=== PATIENT | male | born 1960 | race Caucasian/White ===

== ENCOUNTER 2017-09-21 10:41 | Emergency (ER) | payer MEDICARE ==
[2016-08-25 08:50] VITALS: Wt 68.0 kg
[~2017-09-21 10:41] MED LIST: ACET-1966 PO; AMO500 PO; ASC500 PO; ASPI325T22 PO; AUG875 PO; CHOL10005 PO; CIP500 PO; CIPR-345 PO; CYC10 PO; CYCL10TA29 PO; DAR100 PO; DICL-192 PO; DOC100 PO; FISH OIL 1,2001 CAP PO; FISH OIL1 CAP PO; HYDR-3083 PO; HYDR-3097 PO; HYDR-389 PO; HYDR-4309 PO; HYDR-6016 PO; IBU800 PO; IBUP-1671 PO; IBUP600T22 PO; KET10 PO; LAM25 PO; LAMO100T56 PO; LAMO200T46 PO; LEV500 PO; LEVO50TA80 PO; LEVO50TA86 PO; LEVO88TA45 PO; LOR5 PO; LOR5/325 PO; LORA-630 PO; METR-1 PO; MIRT-20 PO; MOM PO; MULT-1379 PO; MULT-820 PO; MULT-865 PO; NABU-95 PO; NICO-219 BC; NIT4 SL; OLA5 PO; OLAN10TA21 PO; OLAN20TA17 PO; OLAN5TAB25 PO; OXYC-856 PO; OXYC-865 PO; PENI-22 PO; PER PO; PRA20 PO; PRE20 PO; PREG100C44 PO; PROM-110 PO; RISP-34 PO; RISP3TAB78 PO; RIV10 PO; ROS10 PO; ROSU20TA23 PO; ROSU40TA18 PO; SER50 PO; SERT-1 PO; THIA100T62 PO; VENL75CA58 PO; WARF5TAB23 PO; ZINC15TA4 PO
--- NOTE | 2017-09-21 11:03 | ER Report ---
History and Physical Time Seen By MD: 11:02 Hx. of Stated Complaint: [facility] HOME; [facility] CALLED PD ON THIS PATIEN; PATIENT WAS SPEEKING WITH PEEK AND STATED THAT HE WANTED TO JUMP OFF A BRIDGE; PATIENT STATED TO OFFICER THAT HE WANTED HIM TO SHOOT HIM; PATIENT STATES THAT HE IS A "SHIT" AND "CAN'T DO ANYTHING RIGHT" HPI/ROS CHIEF COMPLAINT: Suicidal ideation, depression HISTORY OF PRESENT ILLNESS: 57-year-old male patient presents to emergency room with complaint of suicidal ideation, depression. Patient states he's been feeling like this since he got out of alf and even a couple weeks before he got out of alf. Patient states he was just released on after spending 50 days in alf for not having a breathalyzer lock in his car. He states that he is had suicidal ideation and suicide attempts in the past. He states last time was proximally 4 years ago when he overdosed on medication. He is unable to recall what medications was. He states he just feels like he is "a piece of shit", patient also feels like he is worthless and just wants to . He states he is in time on the behavioral health unit as well as time at the [facility]. Patient is aware that he has been emergency detained has being held against his will. REVIEW OF SYSTEMS: Respiratory: No cough, no dyspnea. Cardiovascular: No chest pain, no palpitations. Gastrointestinal: No vomiting, no abdominal pain. Musculoskeletal: Patient complains of right hip pain. Allergies: Coded Allergies: No Known Drug Allergies (Unverified , 09/21/17) Home Meds Reported Medications Levothyroxine Sodium (LEVOTHYROXINE SODIUM) 88 Mcg Tablet, 88 MCG PO QAM 01/12/17 Cholecalciferol (Vitamin D3) (VITAMIN D3) 1,000 Unit Tablet, 2000 UNIT PO QDAY, TAB 01/12/17 Venlafaxine Hcl (EFFEXOR XR) 75 Mg Cap.er.24h, 75 MG PO QDAY 01/12/17 Nicotine Polacrilex (NICORETTE) 2 Mg Gum, 2 MG BC Q1-2H Y for NICOTINE REPLACEMENT, GUM 11/17/16 Ibuprofen (IBUPROFEN) 600 Mg Tablet, 1 TAB PO Q6H Y for PAIN, TAB 11/17/16 Aspirin (ECOTRIN) 325 Mg Tablet.dr, 325 MG PO QDAY 11/17/16 Multivits,Th W-Fe,Other Min (THERA-M) 1 Each Tablet, 1 EACH PO QDAY 08/26/16 Mirtazapine (REMERON) 30 Mg Tab.rapdis, 30 MG PO QHS 08/26/16 Past Medical/Surgical History Patient has a past medical history of TBI, irregular heartbeat, hyperlipidemia, hayfever, ventral hernia, arthritis, hip fracture, rib fracture, left femoral fracture, transient back pain, hypothyroidism, marijuana abuse, alcohol abuse, depression and suicidal ideation, suicide attempt 3. Patient has a surgical history of a splenectomy, perforated bowel, ventral hernia repair, right hip replacement, back surgery, knee surgery, ankle surgery , shoulder surgery, tonsillectomy. Patient has a family medical history of cancer, CAD, stroke. Reviewed Nurses Notes: Yes Hx Smoking: No Smoking Status: Never Smoker Exposure to Second Hand Smoke?: No Hx Substance Use Disorder: Yes (POT) Hx Alcohol Use: Yes Constitutional Vital Sign - Last 24 Hours 09/21/17 09/21/17 09/21/17 09/21/17 10:45 10:46 11:00 11:11 Temp 98.7 Pulse 112 107 Resp 19 B/P (MAP) 140/99 (113) 140/99 155/101 (119) Pulse Ox 94 92 O2 Delivery Room Air 09/21/17 09/21/17 11:30 11:41 Pulse 101 B/P (MAP) 139/101 (114) Pulse Ox 91 Physical Exam General Appearance: The patient is alert, has no immediate need for airway protection and no current signs of toxicity. ENT: Tympanic membranes are pearly-banks, auditory canals are patent, mucous membranes are moist. Respiratory: Chest is non tender, lungs are clear to auscultation. Cardiac: regular rate and rhythm Gastrointestinal: Abdomen is soft and non tender, no masses, bowel sounds normal. Musculoskeletal: Neck: Neck is supple and non tender. Extremities have full range of motion and are non tender. Patient does have some tenderness around the right hip, he is also wearing his wallet on that side. Skin: No rashes or lesions. Psych: Patient is alert and oriented, maintains poor eye contact during interview, speech is slow. DIFFERENTIAL DIAGNOSIS: After history and physical exam differential diagnosis was considered for suicidal ideation, depression, right hip pain. Medical Decision Making Data Points Result Diagram: 09/21/17 1056 09/21/17 1056 Laboratory Hematology Test 09/21/17 10:56 09/21/17 11:44 Red Blood Count 5.21 M/uL (4.00-5.60) Mean Corpuscular Volume 91.8 fL (80.0-96.0) Mean Corpuscular Hemoglobin 31.8 pg (26.0-33.0) Mean Corpuscular Hemoglobin Concent 34.7 g/dL (32.0-36.0) Red Cell Distribution Width 13.3 % (11.5-14.5) Mean Platelet Volume 9.0 fL (7.2-11.1) Neutrophils (%) (Auto) 74.7 % (39.4-72.5) Lymphocytes (%) (Auto) 12.3 % (17.6-49.6) Monocytes (%) (Auto) 11.6 % (4.1-12.4) Eosinophils (%) (Auto) 0.2 % (0.4-6.7) Basophils (%) (Auto) 1.2 % (0.3-1.4) Nucleated RBC Relative Count (auto) 0.0 /100WBC Neutrophils # (Auto) 7.3 K/uL (2.0-7.4) Lymphocytes # (Auto) 1.2 K/uL (1.3-3.6) Monocytes # (Auto) 1.1 K/uL (0.3-1.0) Eosinophils # (Auto) 0.0 K/uL (0.0-0.5) Basophils # (Auto) 0.1 K/uL (0.0-0.1) Nucleated RBC Absolute Count (auto) 0.00 K/uL Peripheral Blood Smear No Y/N Sodium Level 129 mmol/L (137-145) Potassium Level 4.5 mmol/L (3.5-5.0) Chloride Level 96 mmol/L (98-107) Carbon Dioxide Level 17 mmol/L (22-30) Blood Urea Nitrogen 10 mg/dl (9-21) Creatinine 1.00 mg/dl (0.66-1.25) Glomerular Filtration Rate Calc > 60.0 Random Glucose 104 mg/dl (75-110) Calcium Level 9.9 mg/dl (8.4-10.2) Magnesium Level 2.1 mg/dl (1.7-2.2) Total Bilirubin 0.8 mg/dl (0.2-1.3) Aspartate Amino Transf (AST/SGOT) 64 U/L (0-35) Alanine Aminotransferase (ALT/SGPT) 37 U/L (0-56) Alkaline Phosphatase 122 U/L (0-126) Total Protein 8.6 gm/dl (6.3-8.2) Albumin 4.9 g/dl (3.5-5.0) Salicylates Level < 10 mg/L Salicylate Last Dose Date unk Acetaminophen Level < 10 ug/ml Serum Alcohol < 10 mg/dl Urine Color Yellow Urine Clarity Clear Urine pH 5.0 pH (4.8-9.5) Urine Specific [place] 1.013 Urine Protein Negative mg/dL (NEGATIVE) Urine Glucose (UA) Negative mg/dL (NEGATIVE) Urine Ketones 80 mg/dL (NEGATIVE) Urine Blood Negative (NEGATIVE) Urine Nitrite Negative (NEGATIVE) Urine Bilirubin Negative (NEGATIVE) Urine Urobilinogen Negative mg/dL (0.2-1.9) Urine Leukocyte Esterase Negative (NEGATIVE) Urine RBC <1 /HPF (0-2/HPF) Urine WBC 4 /HPF (0-5/HPF) Urine Squamous Epithelial Cells None /LPF (</=FEW) Urine Bacteria Negative /HPF (NONE-FEW) Urine Hyaline Casts Few /LPF (NONE-FEW) Urine Mucus None /HPF (NONE-FEW) Urine Opiates Screen Negative Urine Barbiturates Screen Negative Ur Tricyclic Antidepressants Screen Negative Urine Phencyclidine Screen Negative Urine Amphetamines Screen Negative Urine Benzodiazepines Screen Negative Urine Cocaine Screen Negative Urine Cannabinoids Screen Negative Chemistry Test 09/21/17 10:56 09/21/17 11:44 White Blood Count 9.8 k/uL (4.5-11.0) Red Blood Count 5.21 M/uL (4.00-5.60) Hemoglobin 16.6 g/dL (14.0-18.0) Hematocrit 47.8 % (42.0-52.0) Mean Corpuscular Volume 91.8 fL (80.0-96.0) Mean Corpuscular Hemoglobin 31.8 pg (26.0-33.0) Mean Corpuscular Hemoglobin Concent 34.7 g/dL (32.0-36.0) Red Cell Distribution Width 13.3 % (11.5-14.5) Platelet Count 341 K/uL (150-450) Mean Platelet Volume 9.0 fL (7.2-11.1) Neutrophils (%) (Auto) 74.7 % (39.4-72.5) Lymphocytes (%) (Auto) 12.3 % (17.6-49.6) Monocytes (%) (Auto) 11.6 % (4.1-12.4) Eosinophils (%) (Auto) 0.2 % (0.4-6.7) Basophils (%) (Auto) 1.2 % (0.3-1.4) Nucleated RBC Relative Count (auto) 0.0 /100WBC Neutrophils # (Auto) 7.3 K/uL (2.0-7.4) Lymphocytes # (Auto) 1.2 K/uL (1.3-3.6) Monocytes # (Auto) 1.1 K/uL (0.3-1.0) Eosinophils # (Auto) 0.0 K/uL (0.0-0.5) Basophils # (Auto) 0.1 K/uL (0.0-0.1) Nucleated RBC Absolute Count (auto) 0.00 K/uL Peripheral Blood Smear No Y/N Glomerular Filtration Rate Calc > 60.0 Calcium Level 9.9 mg/dl (8.4-10.2) Magnesium Level 2.1 mg/dl (1.7-2.2) Total Bilirubin 0.8 mg/dl (0.2-1.3) Aspartate Amino Transf (AST/SGOT) 64 U/L (0-35) Alanine Aminotransferase (ALT/SGPT) 37 U/L (0-56) Alkaline Phosphatase 122 U/L (0-126) Total Protein 8.6 gm/dl (6.3-8.2) Albumin 4.9 g/dl (3.5-5.0) Salicylates Level < 10 mg/L Salicylate Last Dose Date unk Acetaminophen Level < 10 ug/ml Serum Alcohol < 10 mg/dl Urine Color Yellow Urine Clarity Clear Urine pH 5.0 pH (4.8-9.5) Urine Specific [place] 1.013 Urine Protein Negative mg/dL (NEGATIVE) Urine Glucose (UA) Negative mg/dL (NEGATIVE) Urine Ketones 80 mg/dL (NEGATIVE) Urine Blood Negative (NEGATIVE) Urine Nitrite Negative (NEGATIVE) Urine Bilirubin Negative (NEGATIVE) Urine Urobilinogen Negative mg/dL (0.2-1.9) Urine Leukocyte Esterase Negative (NEGATIVE) Urine RBC <1 /HPF (0-2/HPF) Urine WBC 4 /HPF (0-5/HPF) Urine Squamous Epithelial Cells None /LPF (</=FEW) Urine Bacteria Negative /HPF (NONE-FEW) Urine Hyaline Casts Few /LPF (NONE-FEW) Urine Mucus None /HPF (NONE-FEW) Urine Opiates Screen Negative Urine Barbiturates Screen Negative Ur Tricyclic Antidepressants Screen Negative Urine Phencyclidine Screen Negative Urine Amphetamines Screen Negative Urine Benzodiazepines Screen Negative Urine Cocaine Screen Negative Urine Cannabinoids Screen Negative Toxicology Test 09/21/17 10:56 09/21/17 11:44 Salicylates Level < 10 mg/L Salicylate Last Dose Date unk Acetaminophen Level < 10 ug/ml Serum Alcohol < 10 mg/dl Urine Opiates Screen Negative Urine Barbiturates Screen Negative Ur Tricyclic Antidepressants Screen Negative Urine Phencyclidine Screen Negative Urine Amphetamines Screen Negative Urine Benzodiazepines Screen Negative Urine Cocaine Screen Negative Urine Cannabinoids Screen Negative Urinalysis Test 09/21/17 11:44 Urine Color Yellow Urine Clarity Clear Urine pH 5.0 pH (4.8-9.5) Urine Specific [place] 1.013 Urine Protein Negative mg/dL (NEGATIVE) Urine Glucose (UA) Negative mg/dL (NEGATIVE) Urine Ketones 80 mg/dL (NEGATIVE) Urine Blood Negative (NEGATIVE) Urine Nitrite Negative (NEGATIVE) Urine Bilirubin Negative (NEGATIVE) Urine Urobilinogen Negative mg/dL (0.2-1.9) Urine Leukocyte Esterase Negative (NEGATIVE) Urine RBC <1 /HPF (0-2/HPF) Urine WBC 4 /HPF (0-5/HPF) Urine Squamous Epithelial Cells None /LPF (</=FEW) Urine Bacteria Negative /HPF (NONE-FEW) Urine Hyaline Casts Few /LPF (NONE-FEW) Urine Mucus None /HPF (NONE-FEW) EKG/Imaging Imaging Exam type: HIP RIGHT History: hip pain Comparison: January 06, 2014. Findings: There is a right hip arthroplasty that appears in good anatomic alignment. There is an old fracture deformity through the pubis and probable left iliac bone again seen. IMPRESSION: 1. No evidence of acute fracture-dislocation involving the right hip. Right hip arthroplasty appears in good anatomic alignment Report Dictated By: Samra Figueroa MD at 09/21/2017 11:58 AM Report E-Signed By: Samra Figueroa MD at 09/21/2017 11:59 AM ED Course/Re-evaluation ED Course Patient was admitted and examined, history and physical were obtained. Differential diagnoses were considered. On examination patient had some right hip tenderness, patient was obviously depressed. He had difficult time maintaining eye contact. He continued say things such as "I wish I was ", " I wish it was not here". Blood work for a behavioral health admission was done. The results were unremarkable except the patient did have 4 white blood cells per high-power field in his urine. A urine culture was obtained. X-rays done of the right hip which was negative. I discussed findings with patient. I spoke with Dr. Alcazar, psychiatrist, who agreed to accept the patient for admission. I discussed the findings with the patient and we will go ahead and admit him to behavioral health. Decision to Disposition Date: Sep 21, 2017 Decision to Disposition Time: 12:39 Depart Departure Latest Vital Signs Vital Signs Date Time Temp Pulse Resp B/P (MAP) Pulse Ox O2 Delivery O2 Flow Rate FiO2 09/21/17 11:41 101 91 09/21/17 11:30 139/101 (114) 09/21/17 10:46 98.7 19 Room Air Impression: Primary Impression: Depression with suicidal ideation Condition: Condition Unchanged Disposition: XFER TO [facility] LOI FREITAS Sep 21, 2017 11:03
[2017-09-21 11:30] VITALS: BP 139/101
[2017-09-21 11:30] LABS: PLATELET COUNT, AUTOMATED 341 K/uL (150-450)
--- NOTE | 2017-09-21 12:03 | RADIOLOGY IMAGING REPORT ---
[place]AC[place] [facility] [place]IENT NAME: Farooq Tai : 1960 MR: [id number] V: [id number] EXAM DATE: ORDERING PHYSICIAN: LOI FREITAS TECHNOLOGIST: Location: [facility] [place] Patient: Farooq Tai : 1960 Visit/Account:[id number] Date of Sevice: 09/21/2017 Exam type: HIP RIGHT History: hip pain Comparison: January 06, 2014. Findings: There is a right hip arthroplasty that appears in good anatomic alignment. There is an old fracture deformity through the pubis and probable left iliac bone again seen. IMPRESSION: 1. No evidence of acute fracture-dislocation involving the right hip. Right hip arthroplasty appear s in good anatomic alignment Report Dictated By: Samra Figueroa MD at 09/21/2017 11:58 AM Report E-Signed By: Samra Figueroa MD at 09/21/2017 11:59 AM WSN:[email or web address]
--- NOTE | 2017-09-21 12:48 | BHS - Psychiatric Evaluation ---
ER - Title 25 MHE Evaluation Title 25 Evaluation Patient Detained By: Law Enforcement Referral Source: [facility] Date Patient Detained: Sep 21, 2017 Time Patient Detained: 11:03 Date Jail Expires: Sep 24, 2017 Time Jail Expires: 11:03 Legal Status: Police Hold: Yes Legal Status: Residence: [facility] Resident, [facility] Resident Assessment Data Provided By: Patient, Law Enforcement HPI/ROS: Please review ER documentation Admit due to SI or Attempt: No Suicide Plan: Has Plan with Access Current Suicide Plan Jumping off of his balcony at his home. Patient also requested the police shoot him in route to the hospital. Alcohol or Drugs Involved: No Mental Status Exam General Appearance: Unkept, Tearful Speech: Delayed Mood: Dysthmic/Depressed Affect: Sad Thought Process: Logical Thought Content: Suicidal Ideation Sensorium: Clear Cognition: Alert & Oriented-Place, [id number]-[id number] Memory: Immediate, Recent, Remote Insight Judgment: Poor Sleep: Normal Hallucinations: Denies Delusions: Denies Current Risk & History Current Dangerous Risk Assessm: Current Suicide Ideation Past Dangerous Risk Assessm: Suicide Ideation-last 6mo, Self-Injurious Behaviors Prior Alcohol/Drug Abuse Alcohol and Marijuana abuse Previous Suicide Attempt: Past - High Lethality Number of Attempts/Description 3, last one was 4 years ago. Previous Psychiatric Illness: Yes Previous Psychiatric Treatment: Yes Previous Treatment Description [facility] Risk Assessment & Disposition Evaluated Risk Assessment: Patient has a focus of ideas on suicide and patient not wanting to be here. That coupled with his plan of jumping off a balcony and having access to that appointment patient will need to be detained and admitted to behavioral health unit. Impression: Primary Impression: Depression with suicidal ideation Meets Mental Illness Req.: Yes Meets Dangerousness Req.: Yes Emergency Jail to be: Upheld Date of Decision: Sep 21, 2017 Time of Decision: 11:35 Patient is Medically Stable at: Yes Disposition: LOI DIOP Sep 21, 2017 12:48
== END 2017-09-21 12:53 ==
LOC: ER 11:04
DX: F32.9 Major depressive disorder, single episode, unspecified (principal); R45.851 Suicidal ideations
CPT/HCPCS: 36415; 73502; 80305; 81001; 83735; 84443; 85025; 87088; 99285; G0480; 80320; 80329; 82040; 82247; 82310; 82374; 82435; 82565; 82947; 84075; 84132; 84155; 84295; 84450; 84460; 84520

== ENCOUNTER 2017-09-21 12:38 | Inpatient (IN) | payer MEDICARE ==
[2016-08-25 08:50] VITALS: Ht 170.2 cm; Wt 67.1 kg
[~2017-09-21] VITALS: Ht 170.2 cm; Wt 67.1 kg
[2017-09-21] MEDS ORDERED: MAG HYD/AL HYD/SIMETH 30ML UDC PO PRN (13:10)
[2017-09-21 13:25] VITALS: BP 128/93
[2017-09-21] MEDS ORDERED: DIAZEPAM 10 MG TAB PO ONE (14:00)
[2017-09-21] MEDS ORDERED: DIAZEPAM 10 MG TAB PO PRN (16:05)
[2017-09-21] MEDS: TAMSULOSIN HCL 0.4 MG CAP PO SCH (17:19)
[2017-09-21] MEDS ORDERED: VALPROIC ACID 250 MG CAP PO SCH (21:00)
[2017-09-22] MEDS: LEVOTHYROXINE SOD 0.088 MG TAB PO SCH (05:16)
[2017-09-22 05:30] VITALS: BP 132/80
[2017-09-22] MEDS: CHOLECALCIFEROL 1000 UNIT TAB PO SCH (08:21)
[2017-09-22] MEDS: NICOTINE POLACRILEX 2 MG GUM PO PRN ×2 (08:21→12:56)
[2017-09-22] MEDS: TAMSULOSIN HCL 0.4 MG CAP PO SCH (08:21)
[2017-09-22] MEDS: MULTIVITAMINS TAB PO SCH (08:21)
[2017-09-22] MEDS: LITHIUM CARBONATE 300 MG CAP PO SCH ×2 (11:38→21:37)
[2017-09-22 13:39] VITALS: BP 119/84
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
[2017-09-22] MEDS: MIRTAZAPINE 15 MG TAB PO SCH (21:38)
[2017-09-23] MEDS: LEVOTHYROXINE SOD 0.088 MG TAB PO SCH (05:28)
[2017-09-23 05:42] VITALS: BP 122/79
[2017-09-23] MEDS: CHOLECALCIFEROL 1000 UNIT TAB PO SCH (08:09)
[2017-09-23] MEDS: MULTIVITAMINS TAB PO SCH (08:09)
[2017-09-23] MEDS: LITHIUM CARBONATE 300 MG CAP PO SCH ×2 (08:09→20:46)
[2017-09-23] MEDS: TAMSULOSIN HCL 0.4 MG CAP PO SCH (08:09)
[2017-09-23] MEDS: NICOTINE POLACRILEX 2 MG GUM PO PRN (08:10)
--- NOTE | 2017-09-23 10:46 | BHS Progress Note ---
S - Subjective Progress Notes Subjective Patient remains very dysphoric this AM, little desire to get out of bed, stating "what is the point?" remains suicidal, is able to cooperate with staff encouraging patient to go for a walk with them. Will continue same medication today, and continue to encourage active engagement on the unit. Will need to look into suspended commitment status, on this patient with a high frequency of return of suicidal thoughts and attempts when not in a structured living arrangement. Suicidal Ideation: Ongoing Homicidal Ideation: None [facility] - Objective Physical Exam Vital Signs Vital Signs Date Time Temp Pulse Resp B/P (MAP) Pulse Ox O2 Delivery O2 Flow Rate FiO2 09/23/17 05:42 98.0 73 15 122/79 (93) 93 Room Air Hematology Test 09/21/17 10:56 Valproic Acid (Depakene) Level < 10.0 ug/ml Chemistry Test 09/21/17 10:56 Valproic Acid (Depakene) Level < 10.0 ug/ml Toxicology Test 09/21/17 10:56 Valproic Acid (Depakene) Level < 10.0 ug/ml Muscle Strength and Tone: Other (arthritic gait) Gait and Station: Unsteady [facility] Medications Reviewed: Side Effects, Benefits of Medication, Risks Allergies Reviewed: Yes Mental Status Exam General Appearance: No Good Eye Contact, Cooperative, Unkept, Psychomotor Retardation (significant), No Bizarre Mannerisms, No Tics Speech: Clear, No Normal Rate, No Normal Volume, Delayed, Other (poverty of, from baseline) Mood: Dysthmic/Depressed Affect: No Full and Appropriate, Flat, Withdrawn, No Anxious, No Agitated Thought Process: No Goal Directed, No Loose Associations, No Flight of Ideas Thought Content: Suicidal Ideation (ongoing, severe), No Homicidal Ideation, No Delusions, No Auditory Halllucinations, No Visual Hallucinations, No Thought Broadcasting, No Ideas of Reference, No Obsessions, No Compulsions Sensorium: Clear Cognition: Alert & Oriented-Person, Alert & Oriented-Place, Alert & Oriented- Time, Vuxdw-Ittynlxq-Ckzetfgmi Memory: Immediate, Recent, Remote Intelligence: Average Insight Judgment: Poor (extreme dysphoric state, historically complicated by alcohol and cannabis use. ) [facility] Assessment and Plan Galh-jf-Yeuf Encounter Date: Sep 23, 2017 Zggt-rm-Lyjo Encounter Time: 09:00 BHS Plan: Necessary Precautions, Individual/Group Therapy, Admin/Titrate Meds, Educate Patient Tobacco Medications: Started Multpiple Antipsychotics Used: No Problems: (1) Major depression, recurrent Optional Permanent Comment: rule out bipolar disorder type II Last Edited By: Jeni Gillis on Sep 23, 2017 10:44 Status: Chronic Condition 1. continue treatment. 2. no medication changes. 3. look into status of previous commitment, 4. schedule hearing. Problem Qualifiers (1) Major depression, recurrent: Active/Remission status: currently active Major depression episode severity: severe Psychotic features: without psychotic features Qualified Codes: F33.2 - Major depressive disorder, recurrent severe without psychotic features JENI GILLIS MD Sep 23, 2017 10:45
[2017-09-23 13:28] VITALS: BP 131/76
[2017-09-23] MEDS: MIRTAZAPINE 15 MG TAB PO SCH (20:46)
[2017-09-24] MEDS: LEVOTHYROXINE SOD 0.088 MG TAB PO SCH (06:00)
[2017-09-24] MEDS: LITHIUM CARBONATE 300 MG CAP PO SCH ×2 (08:05→21:15)
[2017-09-24] MEDS: TAMSULOSIN HCL 0.4 MG CAP PO SCH (08:05)
[2017-09-24] MEDS: CHOLECALCIFEROL 1000 UNIT TAB PO SCH (08:05)
[2017-09-24] MEDS: MULTIVITAMINS TAB PO SCH (08:05)
[2017-09-24 12:35] VITALS: BP 112/68
--- NOTE | 2017-09-24 14:11 | BHS Progress Note ---
[facility] - Subjective Progress Notes Subjective Pt seen in team meeting with staff present. Pt. states, "I ain't shit, just kill me." He continues to be withdrawn to his room, hopeless, self-denigrating , with profound passive wishes. He denies active SI, denies any plan or intent to harm himself here in the hospital. He refused to attend his 72 hour hearing today, so his jewel staker arranged a "behavioral stipulation" on his behalf. Appetite has been poor. Poor grooming. Low energy, helpless, significant anhedonia. Tolerating current meds well, denies n/v/d/tremor. Says "I don't know" when asked how he is sleeping. Suicidal Ideation: Ongoing (profound persistant passive wishes.) [facility] - Objective Physical Exam Vital Signs Vital Signs 09/24/17 12:35 Temp 98.9 Pulse 73 Resp 16 B/P (MAP) 112/68 (83) Pulse Ox 89 O2 Delivery Room Air Muscle Strength and Tone: Other (arthritic gait) Gait and Station: Unsteady [facility] Medications Reviewed: Side Effects, Benefits of Medication, Risks Allergies Reviewed: Yes Mental Status Exam General Appearance: No Good Eye Contact, Cooperative, Unkept, Psychomotor Retardation (significant), No Bizarre Mannerisms, No Tics Speech: Clear, No Normal Rate, No Normal Volume, Delayed, Other (poverty of, from baseline) Mood: Dysthmic/Depressed Affect: No Full and Appropriate, Sad, Flat, Withdrawn, No Anxious, No Agitated Thought Process: Organized, Logical, No Goal Directed, No Loose Associations, No Flight of Ideas Thought Content: Suicidal Ideation ( passive wishes are profound and persistant, high risk for suicide outside hospital setting), No Homicidal Ideation, No Delusions, No Auditory Halllucinations, No Visual Hallucinations, No Thought Broadcasting, No Ideas of Reference, No Obsessions, No Compulsions Sensorium: Clear Cognition: Alert & Oriented-Person, Alert & Oriented-Place, Alert & Oriented- Time, Wgjgz-Milprlko-Jeqpsacce Memory: Immediate, Recent, Remote Intelligence: Average Insight Judgment: Poor (extreme dysphoric state, historically complicated by alcohol and cannabis use. ) [facility] Assessment and Plan [id number] Encounter Date: Sep 24, 2017 Klwu-fk-Afiu Encounter Time: 10:00 [facility] Plan: Necessary Precautions, Individual/Group Therapy, Admin/Titrate Meds, Educate Patient Tobacco Medications: Started Multpiple Antipsychotics Used: No Problems: (1) Bipolar 2 disorder (2) Suicidal ideation (3) Alcohol use disorder, severe, in controlled environment Status: Chronic PAULINA MARQUEZ MD Sep 24, 2017 14:11
[2017-09-24] MEDS: MIRTAZAPINE 15 MG TAB PO SCH (21:15)
[2017-09-25] MEDS: LEVOTHYROXINE SOD 0.088 MG TAB PO SCH (05:54)
[2017-09-25] MEDS: CHOLECALCIFEROL 1000 UNIT TAB PO SCH (08:05)
[2017-09-25] MEDS: LITHIUM CARBONATE 300 MG CAP PO SCH ×2 (08:05→20:59)
[2017-09-25] MEDS: TAMSULOSIN HCL 0.4 MG CAP PO SCH (08:05)
[2017-09-25] MEDS: MULTIVITAMINS TAB PO SCH (08:06)
--- NOTE | 2017-09-25 12:19 | BHS Progress Note ---
S - Subjective Progress Notes Subjective Pt seen in team room with staff. Pt remains extremely depressed, hopeless, poor eye contact, psychomotor retardation, anergic, anhedonic, with profound passive wishes. "I'm a piece of shit, put a bullet in between my eyes." He denies any thoughts of killing himself here on the unit. He is tolerating meds without side effects, denies n/v/d/tremor. Sleeping excessively and stays withdrawn to his room; resists encouragement to participate in the [place]. Will continue current meds. Suicidal Ideation: Ongoing (profound wishes and says "I don't know" what he would do outside the hospital. High risk pt.) Homicidal Ideation: None [facility] - Objective Physical Exam Vital Signs Vital Signs 09/24/17 12:35 Temp 98.9 Pulse 73 Resp 16 B/P (MAP) 112/68 (83) Pulse Ox 89 O2 Delivery Room Air Muscle Strength and Tone: Other (arthritic gait) Gait and Station: Unsteady [facility] Medications Reviewed: Side Effects, Benefits of Medication, Risks Allergies Reviewed: Yes Mental Status Exam General Appearance: No Good Eye Contact, Cooperative, Unkept, Psychomotor Retardation (significant), No Bizarre Mannerisms, No Tics Speech: Clear, No Normal Rate, No Normal Volume, Delayed, Other (poverty of, from baseline) Mood: Dysthmic/Depressed Affect: No Full and Appropriate, Sad, Flat, Withdrawn, No Anxious, No Agitated Thought Process: Organized, Logical, No Goal Directed, No Loose Associations, No Flight of Ideas Thought Content: Suicidal Ideation ( passive wishes are profound and persistant, high risk for suicide outside hospital setting), No Homicidal Ideation, No Delusions, No Auditory Halllucinations, No Visual Hallucinations, No Thought Broadcasting, No Ideas of Reference, No Obsessions, No Compulsions Sensorium: Clear Cognition: Alert & Oriented-Person, Alert & Oriented-Place, Alert & Oriented- Time, Nvmuu-Msvasdfp-Vnxgisuuf Memory: Immediate, Recent, Remote Intelligence: Average Insight Judgment: Poor (extreme dysphoric state, historically complicated by alcohol and cannabis use. ) [facility] Assessment and Plan Jyks-dm-Mtpg Encounter Date: Sep 25, 2017 Gpmz-wb-Nuif Encounter Time: 10:00 [facility] Plan: Necessary Precautions, Individual/Group Therapy, Admin/Titrate Meds, Educate Patient Tobacco Medications: Started Multpiple Antipsychotics Used: No Problems: (1) Bipolar 2 disorder (2) Suicidal ideation (3) Alcohol use disorder, severe, in controlled environment Status: Chronic PAULINA MARQUEZ MD Sep 25, 2017 12:19
[2017-09-25 12:40] VITALS: BP 137/83
[2017-09-25] MEDS: MIRTAZAPINE 15 MG TAB PO SCH (20:59)
[2017-09-26] MEDS: LEVOTHYROXINE SOD 0.088 MG TAB PO SCH (06:00)
[2017-09-26] MEDS: CHOLECALCIFEROL 1000 UNIT TAB PO SCH (08:19)
[2017-09-26] MEDS: LITHIUM CARBONATE 300 MG CAP PO SCH ×2 (08:19→21:00)
[2017-09-26] MEDS: MULTIVITAMINS TAB PO SCH (08:19)
[2017-09-26] MEDS: TAMSULOSIN HCL 0.4 MG CAP PO SCH (08:19)
[2017-09-26] MEDS: lamoTRIgine 25 MG TAB PO SCH (10:05)
--- NOTE | 2017-09-26 12:58 | BHS Progress Note ---
S - Subjective Progress Notes Subjective Pt seen in team room. He remains gravely depressed, stays in bed, is irritable , negative, hopeless, helpless, anergic, with profound relentless passive wishes. He is tolerating meds well, denies n/v/d/tremor. Because he has not progressed any in terms of depression, will go ahead and increase remeron today to 30 mg. Will also initiate lamictal to treat depression in pt. with bipolar spectrum mood disorder. Pt understands risk of rash with lamictal and agrees to notify staff if any rash. Pt was on lamictal about 8 years ago without problem, so he is likely to tolerate it. Tomorrow will check lithium level and chem panel-- this will be a 5 day steady state level. Suicidal Ideation: Ongoing (His passive wishes are relentless; denies intent to harm self in hospital but can't contract for safety outside of hospital.) Homicidal Ideation: None [facility] - Objective Physical Exam Vital Signs Vital Signs 09/25/17 12:40 Temp 98.7 Pulse 66 Resp 16 B/P (MAP) 137/83 (101) Pulse Ox 91 O2 Delivery Room Air Muscle Strength and Tone: Other (arthritic gait) Gait and Station: Unsteady [facility] Medications Reviewed: Side Effects, Benefits of Medication, Risks Allergies Reviewed: Yes Mental Status Exam General Appearance: No Good Eye Contact, Cooperative, Unkept, Psychomotor Retardation (significant), No Bizarre Mannerisms, No Tics Speech: Clear, No Normal Rate, No Normal Volume, Delayed, Other (poverty of, from baseline) Mood: Dysthmic/Depressed Affect: No Full and Appropriate, Sad, Flat, Withdrawn, No Anxious, No Agitated Thought Process: Organized, Logical, No Goal Directed, No Loose Associations, No Flight of Ideas Thought Content: Suicidal Ideation ( passive wishes are profound and persistant, high risk for suicide outside hospital setting), No Homicidal Ideation, No Delusions, No Auditory Halllucinations, No Visual Hallucinations, No Thought Broadcasting, No Ideas of Reference, No Obsessions, No Compulsions Sensorium: Clear Cognition: Alert & Oriented-Person, Alert & Oriented-Place, Alert & Oriented- Time, Fvcns-Uqmypfaj-Vgedbqugj Memory: Immediate, Recent, Remote Intelligence: Average Insight Judgment: Poor (extreme dysphoric state, historically complicated by alcohol and cannabis use. ) [facility] Assessment and Plan Egka-dw-Xnpm Encounter Date: Sep 26, 2017 Fkvw-yp-Vyyi Encounter Time: 09:00 [facility] Plan: Necessary Precautions, Individual/Group Therapy, Admin/Titrate Meds, Educate Patient Tobacco Medications: Started Multpiple Antipsychotics Used: No Problems: (1) Bipolar 2 disorder (2) Suicidal ideation (3) Alcohol use disorder, severe, in controlled environment Status: PAULINA Jolly MD Sep 26, 2017 12:58
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
[2017-09-26 18:35] VITALS: BP 118/64
[2017-09-26] MEDS: MIRTAZAPINE 15 MG TAB PO SCH (21:00)
[2017-09-27] MEDS: LEVOTHYROXINE SOD 0.088 MG TAB PO SCH (06:00)
[2017-09-27 06:18] VITALS: BP 119/76
[2017-09-27] MEDS: lamoTRIgine 25 MG TAB PO SCH (08:12)
[2017-09-27] MEDS: LITHIUM CARBONATE 300 MG CAP PO SCH ×2 (08:12→21:25)
[2017-09-27] MEDS: MULTIVITAMINS TAB PO SCH (08:12)
[2017-09-27] MEDS: TAMSULOSIN HCL 0.4 MG CAP PO SCH (08:12)
[2017-09-27] MEDS: CHOLECALCIFEROL 1000 UNIT TAB PO SCH (08:12)
--- NOTE | 2017-09-27 15:40 | BHS Progress Note ---
S - Subjective Progress Notes Subjective Pt seen in treatment team with staff. Pt says "I do want to live, I need to get my head out my ass." He is still extremely negative and very down on himself, but no longer expressing such intense wishes. Still with very depressed affect, low appetite, low energy, withdrawn. He is tolerating lithium , lamictal, and increased dose of remeron. Denies n/v/d/tremor. Denies rash. [place] level is 0.5-- will not increase but will rather run his lithium at augmentation strategy (especially since today we are finally seeing a glimmer of improvement). Suicidal Ideation: Resolving Homicidal Ideation: None [facility] - Objective Physical Exam Vital Signs Vital Signs 09/27/17 06:18 Temp 97.8 Pulse 56 Resp 15 B/P (MAP) 119/76 (90) Pulse Ox 91 O2 Delivery Room Air Muscle Strength and Tone: Other (arthritic gait) Gait and Station: Unsteady S Medications Reviewed: Side Effects, Benefits of Medication, Risks Allergies Reviewed: Yes Mental Status Exam General Appearance: No Good Eye Contact, Cooperative, Unkept, Psychomotor Retardation (significant), No Bizarre Mannerisms, No Tics Speech: Clear, No Normal Rate, No Normal Volume, Delayed, Other (poverty of, from baseline) Mood: Dysthmic/Depressed Affect: No Full and Appropriate, Sad, Flat, Withdrawn, No Anxious, No Agitated Thought Process: Organized, Logical, No Goal Directed, No Loose Associations, No Flight of Ideas Thought Content: Suicidal Ideation (denies si today and not voicing wishes today), No Homicidal Ideation, No Delusions, No Auditory Halllucinations , No Visual Hallucinations, No Thought Broadcasting, No Ideas of Reference, No Obsessions, No Compulsions Sensorium: Clear Cognition: Alert & Oriented-Person, Alert & Oriented-Place, Alert & Oriented- Time, Vryki-Ekkknfmh-Qvyalolgz Memory: Immediate, Recent, Remote Intelligence: Average Insight Judgment: Poor (extreme dysphoric state, historically complicated by alcohol and cannabis use.) Result Diagram: 09/27/17 0635 Lab Hematology Test 09/21/17 10:56 09/27/17 06:35 Valproic Acid (Depakene) Level < 10.0 ug/ml Sodium Level 142 mmol/L (137-145) Potassium Level 4.3 mmol/L (3.5-5.0) Chloride Level 106 mmol/L (98-107) Carbon Dioxide Level 23 mmol/L (22-30) Blood Urea Nitrogen 18 mg/dl (9-21) Creatinine 1.00 mg/dl (0.66-1.25) Glomerular Filtration Rate Calc > 60.0 Random Glucose 91 mg/dl (75-110) Calcium Level 9.5 mg/dl (8.4-10.2) Total Bilirubin 0.2 mg/dl (0.2-1.3) Aspartate Amino Transf (AST/SGOT) 13 U/L (0-35) Alanine Aminotransferase (ALT/SGPT) 26 U/L (0-56) Alkaline Phosphatase 57 U/L (0-126) Total Protein 6.4 gm/dl (6.3-8.2) Albumin 3.4 g/dl (3.5-5.0) [place] Level 0.5 mmol/L (0.6-1.2) Chemistry Test 09/21/17 10:56 09/27/17 06:35 Valproic Acid (Depakene) Level < 10.0 ug/ml Glomerular Filtration Rate Calc > 60.0 Calcium Level 9.5 mg/dl (8.4-10.2) Total Bilirubin 0.2 mg/dl (0.2-1.3) Aspartate Amino Transf (AST/SGOT) 13 U/L (0-35) Alanine Aminotransferase (ALT/SGPT) 26 U/L (0-56) Alkaline Phosphatase 57 U/L (0-126) Total Protein 6.4 gm/dl (6.3-8.2) Albumin 3.4 g/dl (3.5-5.0) [place] Level 0.5 mmol/L (0.6-1.2) Toxicology Test 09/21/17 10:56 09/27/17 06:35 Valproic Acid (Depakene) Level < 10.0 ug/ml [place] Level 0.5 mmol/L (0.6-1.2) [facility] Assessment and Plan Ibpg-vl-Srof Encounter Date: Sep 27, 2017 Rrpn-gy-Dlmt Encounter Time: 10:30 [facility] Plan: Necessary Precautions, Individual/Group Therapy, Admin/Titrate Meds, Educate Patient Tobacco Medications: Started Multpiple Antipsychotics Used: No Problems: (1) Bipolar 2 disorder (2) Suicidal ideation (3) Alcohol use disorder, severe, in controlled environment Status: Chronic PAULINA MARQUEZ MD Sep 27, 2017 15:40
[2017-09-27] MEDS: MIRTAZAPINE 15 MG TAB PO SCH (21:25)
[2017-09-28] MEDS: LEVOTHYROXINE SOD 0.088 MG TAB PO SCH (06:00)
[2017-09-28 06:15] VITALS: BP 105/69
[2017-09-28] MEDS: MULTIVITAMINS TAB PO SCH (08:18)
[2017-09-28] MEDS: CHOLECALCIFEROL 1000 UNIT TAB PO SCH (08:18)
[2017-09-28] MEDS: lamoTRIgine 25 MG TAB PO SCH (08:18)
[2017-09-28] MEDS: TAMSULOSIN HCL 0.4 MG CAP PO SCH (08:18)
[2017-09-28] MEDS: LITHIUM CARBONATE 300 MG CAP PO SCH ×2 (08:18→21:34)
[2017-09-28] MEDS: NICOTINE POLACRILEX 2 MG GUM PO PRN ×6 (09:29→18:35)
--- NOTE | 2017-09-28 11:32 | BHS Progress Note ---
[facility] - Subjective Progress Notes Subjective Pt seen in treatment team room with staff present. Pt still reports depressed mood, continues to have low appetite, anhedonia, and low energy. He is starting to be more forward-thinking, talking about "needing to get out of here and get on with my life." Denies SI. Not verbalizing passive wishes today. Tolerating meds well without side effects; denies n/v/d/tremor, denies rash. We will plan to get [facility] involved and start formulating aftercare plans. Suicidal Ideation: Resolving Homicidal Ideation: None [facility] - Objective Physical Exam Vital Signs Vital Signs 09/28/17 06:15 Temp 98.0 Pulse 60 Resp 15 B/P (MAP) 105/69 (81) Pulse Ox 92 O2 Delivery Room Air Muscle Strength and Tone: Other (arthritic gait) Gait and Station: Unsteady [facility] Medications Reviewed: Side Effects, Benefits of Medication, Risks Allergies Reviewed: Yes Mental Status Exam General Appearance: No Good Eye Contact, Cooperative, Unkept, Psychomotor Retardation, No Bizarre Mannerisms, No Tics Speech: Clear, No Normal Rate, No Normal Volume, Delayed, Other Mood: Dysthmic/Depressed Affect: No Full and Appropriate, Sad, Flat, Withdrawn, No Anxious, No Agitated Thought Process: Organized, Logical, No Goal Directed, No Loose Associations, No Flight of Ideas Thought Content: Suicidal Ideation (denies si today and not voicing wishes today), No Homicidal Ideation, No Delusions, No Auditory Halllucinations , No Visual Hallucinations, No Thought Broadcasting, No Ideas of Reference, No Obsessions, No Compulsions Sensorium: Clear Cognition: Alert & Oriented-Person, Alert & Oriented-Place, Alert & Oriented- Time, Hhfch-Bnwdpgow-Efezgubly Memory: Immediate, Recent, Remote Intelligence: Average Insight Judgment: Poor (extreme dysphoric state, historically complicated by alcohol and cannabis use.) Result Diagram: 09/27/17 0635 Lab Hematology Test 09/21/17 10:56 09/27/17 06:35 Valproic Acid (Depakene) Level < 10.0 ug/ml Sodium Level 142 mmol/L (137-145) Potassium Level 4.3 mmol/L (3.5-5.0) Chloride Level 106 mmol/L (98-107) Carbon Dioxide Level 23 mmol/L (22-30) Blood Urea Nitrogen 18 mg/dl (9-21) Creatinine 1.00 mg/dl (0.66-1.25) Glomerular Filtration Rate Calc > 60.0 Random Glucose 91 mg/dl (75-110) Calcium Level 9.5 mg/dl (8.4-10.2) Total Bilirubin 0.2 mg/dl (0.2-1.3) Aspartate Amino Transf (AST/SGOT) 13 U/L (0-35) Alanine Aminotransferase (ALT/SGPT) 26 U/L (0-56) Alkaline Phosphatase 57 U/L (0-126) Total Protein 6.4 gm/dl (6.3-8.2) Albumin 3.4 g/dl (3.5-5.0) [place] Level 0.5 mmol/L (0.6-1.2) Chemistry Test 09/21/17 10:56 09/27/17 06:35 Valproic Acid (Depakene) Level < 10.0 ug/ml Glomerular Filtration Rate Calc > 60.0 Calcium Level 9.5 mg/dl (8.4-10.2) Total Bilirubin 0.2 mg/dl (0.2-1.3) Aspartate Amino Transf (AST/SGOT) 13 U/L (0-35) Alanine Aminotransferase (ALT/SGPT) 26 U/L (0-56) Alkaline Phosphatase 57 U/L (0-126) Total Protein 6.4 gm/dl (6.3-8.2) Albumin 3.4 g/dl (3.5-5.0) [place] Level 0.5 mmol/L (0.6-1.2) Toxicology Test 09/21/17 10:56 09/27/17 06:35 Valproic Acid (Depakene) Level < 10.0 ug/ml [place] Level 0.5 mmol/L (0.6-1.2) [facility] Assessment and Plan Jmsb-lj-Hjfl Encounter Date: Sep 28, 2017 Ofvw-ld-Qmid Encounter Time: 09:00 [facility] Plan: Admit to Unit, Necessary Precautions, Individual/Group Therapy, Admin /Titrate Meds, Educate Patient Tobacco Medications: Started Multpiple Antipsychotics Used: No Problems: (1) Bipolar 2 disorder (2) Suicidal ideation (3) Alcohol use disorder, severe, in controlled environment Status: Chronic PAULINA MARQUEZ MD Sep 28, 2017 11:32
[2017-09-28] MEDS: MIRTAZAPINE 15 MG TAB PO SCH (21:34)
[2017-09-29] MEDS: LEVOTHYROXINE SOD 0.088 MG TAB PO SCH (05:44)
[2017-09-29 06:04] VITALS: BP 122/77
[2017-09-29] MEDS: TAMSULOSIN HCL 0.4 MG CAP PO SCH (08:04)
[2017-09-29] MEDS: LITHIUM CARBONATE 300 MG CAP PO SCH ×2 (08:05→20:51)
[2017-09-29] MEDS: MULTIVITAMINS TAB PO SCH (08:05)
[2017-09-29] MEDS: lamoTRIgine 25 MG TAB PO SCH (08:05)
[2017-09-29] MEDS: NICOTINE POLACRILEX 2 MG GUM PO PRN ×8 (08:05→22:32)
[2017-09-29] MEDS: CHOLECALCIFEROL 1000 UNIT TAB PO SCH (08:05)
[2017-09-29] MEDS ORDERED: LIT300CAP PO (11:51)
[2017-09-29] MEDS ORDERED: TAMS0.4C25 PO (11:51)
[2017-09-29] MEDS ORDERED: LAMO25TA64 PO (11:52)
[2017-09-29] MEDS ORDERED: MIRT-18 PO (11:56)
[2017-09-29] MEDS ORDERED: NICO-219 BC (11:58)
--- NOTE | 2017-09-29 12:57 | BHS Progress Note ---
[facility] - Subjective Progress Notes Subjective Patient very pleasant and cooperative today with treatment team, notably communicating with a normal rate of speech and good eye contact, both of which are indicative and supportive of this patient's verbalized improved mood. Patient is sleeping well, and appetite is good. Patient will be followed closely through outpatient services, and agrees to abstain form alcohol and cannabis. Denies suicidal ideation. Will set up outpatient treatment under a suspended commitment. Suicidal Ideation: None Homicidal Ideation: None [facility] - Objective Physical Exam Vital Signs Vital Signs Date Time Temp Pulse Resp B/P (MAP) Pulse Ox O2 Delivery O2 Flow Rate FiO2 09/29/17 06:04 98.1 74 15 122/77 (92) 92 Room Air Muscle Strength and Tone: Other (arthritic gait) Gait and Station: Unsteady [facility] Medications Reviewed: Side Effects, Benefits of Medication, Risks Allergies Reviewed: Yes Mental Status Exam General Appearance: Casual, Well Groomed, Good Eye Contact, Cooperative, Polite , Good Interaction, Unkept, No Tearful, No Psychomotor Agitation, No Psychomotor Retardation, No Bizarre Mannerisms, No Tics Speech: Clear, Spontaneous, Normal Rate, Normal Rhythm, Normal Volume, Normal Tone, No Delayed, No Slurred, No Garbled, No Rambling, Other Mood: Euthymic Affect: Full and Appropriate, Calm, No Sad, No Neutral, No Flat, No Withdrawn, No Tearful, No Anxious, No Agitated Thought Process: Organized, Logical, No Goal Directed, No Loose Associations, No Flight of Ideas Thought Content: No Suicidal Ideation, No Homicidal Ideation, No Delusions, No Auditory Halllucinations, No Visual Hallucinations, No Thought Broadcasting, No Ideas of Reference, No Obsessions, No Compulsions Sensorium: Clear Cognition: Alert & Oriented-Person, Alert & Oriented-Place, Alert & Oriented- Time, [place] Memory: Immediate, Recent, Remote Intelligence: Average Insight Judgment: Fair (appropriate for outpatient treatment in absence of alcohol and illicit substance. ) Result Diagram: 09/27/17 0635 [facility] Assessment and Plan Obhg-uw-Aohn Encounter Date: Sep 29, 2017 Czsc-wt-Nxsd Encounter Time: 08:40 [facility] Plan: Admit to Unit, Necessary Precautions, Individual/Group Therapy, Admin /Titrate Meds, Educate Patient Tobacco Medications: Started Multpiple Antipsychotics Used: No Problems: (1) Major depression, recurrent Optional Permanent Comment: rule out bipolar disorder type II Last Edited By: Jeni Gillis on Sep 23, 2017 10:44 Status: Chronic Condition 1. will put in place suspended commitment for outpatient care, and discharge to home when this is arranged. 2. no other concerns. Problem Qualifiers (1) Major depression, recurrent: Active/Remission status: currently active Major depression episode severity: severe Psychotic features: without psychotic features Qualified Codes: F33.2 - Major depressive disorder, recurrent severe without psychotic features JENI GILLIS MD Sep 29, 2017 12:57
[2017-09-29] MEDS: MIRTAZAPINE 15 MG TAB PO SCH (20:50)
[2017-09-30 04:29] VITALS: BP 96/72
[2017-09-30] MEDS: LEVOTHYROXINE SOD 0.088 MG TAB PO SCH (05:18)
[2017-09-30] MEDS: CHOLECALCIFEROL 1000 UNIT TAB PO SCH (08:34)
[2017-09-30] MEDS: MULTIVITAMINS TAB PO SCH (08:34)
[2017-09-30] MEDS: lamoTRIgine 25 MG TAB PO SCH (08:35)
[2017-09-30] MEDS: TAMSULOSIN HCL 0.4 MG CAP PO SCH (08:35)
[2017-09-30] MEDS: LITHIUM CARBONATE 300 MG CAP PO SCH (08:35)
[2017-09-30] MEDS: NICOTINE POLACRILEX 2 MG GUM PO PRN ×3 (08:35→13:19)
--- NOTE | 2017-10-01 21:47 | DISCHARGE SUMMARY ---
DATE OF ADMISSION: September 21, 2017 DATE OF DISCHARGE: September 30, 2017 This patient was seen for this note at 0900 hours on 30 September 2017. The patient was initially destined to be released on the , however, had to awaiting signing of court documents. FINAL DIAGNOSES 1. Bipolar II disorder, recent depressed. 2. Cannabis use disorder, in partial remission. 3. Alcohol use disorder, in partial remission. 4. Ongoing social stressors and social isolation. REASON FOR ADMISSION This is a very well known 57-year-old male who came to the unit under an emergency detainment after voicing suicidal threats to outpatient providers. The patient was noted to have recently been discharged from a retirement setting where he was serving out a roughly 50-day sentence for believed to be an alcohol -related offense in the past. The patient had notably become more depressed while in retirement. This depression continued when he was released. The patient was only out a few days before voicing suicidal ideation with outpatient followup team. The patient was brought in, emergency detained. The patient was placed on lithium in an effort to control what may be some underlying bipolar-type symptomatology and also help with depressive symptoms. The patient did improve. He was placed on low-dose Lamictal as well and titrated. He was titrated on mirtazapine. The patient quickly improved. He was placed on an outpatient commitment and was discharged to home. PHYSICAL EXAMINATION Please see emergency room note. Notable for: GENERAL: Thin, 57-year-old male in no acute medical distress. VITAL SIGNS: At time of admission, temperature 98.7, pulse 112, respiratory rate 19, blood pressure 140/99, pulse oximetry 94% on room air. At time of discharge from Behavioral Health Unit, vital signs showed temperature 98.8, pulse 73, respiratory rate 15, blood pressure 96/72, and pulse oximetry 91% on room air. LABORATORY DATA CBC overall unremarkable. CMP notable for sodium 129 at time of admission, AST slightly elevated at 64. TSH 2.57. Urinalysis did show urine ketones at time of admission with a toxicology screen that was negative for substances of abuse with an undetectable serum alcohol level. CMP on September 27, 2017, was unremarkable with a lithium level of 0.5 on September 27, 2017. MENTAL STATUS EXAMINATION GENERAL APPEARANCE, BEHAVIOR, AND ATTITUDE: At time of discharge, this is a pleasant, 57-year-old male, friendly, making notably good eye contact, and rate of speech had returned to what is baseline for this patient when he is in a good mood. No periods of tearfulness. No bizarre mannerisms or tics. SPEECH: Regular rate, rhythm, volume, and tone. MOOD: Described as improved and okay. AFFECT: Full at times and overall mood congruent. THOUGHT PROCESSES: Goal directed, logical. No loose associations or flight of ideas. THOUGHT CONTENT: Free of auditory or visual hallucinations, ideas of reference , thought broadcasting, delusions, obsessions, or compulsions. Negative for any suicidal or homicidal ideation. SENSORIUM: Clear. COGNITION: Alert and oriented to person, place, time, and situation. MEMORY: Immediate, recent, and remote estimated intact. INTELLIGENCE: Average based on historical knowledge of this patient. INSIGHT AND JUDGMENT: Considered grossly intact in the absence of alcohol or substance use and appropriate for ongoing outpatient management with close observation. RESULTS OF TESTING IMAGING: None. LABORATORY DATA: See above. CONSULTATIONS None. TREATMENT The patient received medications and participated in individual and group therapy. HOSPITAL COURSE The patient quickly improved seemingly in response to the administration of lithium and titration of mirtazapine and Lamictal. The patient did take an active role in his treatment and participated in individual and group therapy. CONDITION OF PATIENT ON DISCHARGE Stable. Considered minimal risk to himself or others and appropriate for ongoing outpatient care. DISPOSITION The patient was discharged to home. He would follow up with outpatient providers at the [facility]. DISCHARGE MEDICATIONS 1. Vitamin D3 1000 International Units daily. 2. Lamictal 50 mg for two weeks, then take 100 mg and continue until seen by outpatient provider. 3. Levothyroxine 88 mcg daily. 4. [place] carbonate 300 mg twice daily. 5. Mirtazapine 30 mg at bedtime. 6. Multivitamin with minerals daily. 7. Flomax 0.4 mg daily. PLAN The patient would abstain from Tylenol and ibuprofen and could remain on replacement nicotine gum as necessary [id number]. The patient would abstain from alcohol, cannabis, and any other illicit substances. He would go to and obtain a sponsor. He would follow up with outpatient treatment as court directed. Crisis line was given should symptoms return. Risks, benefits , and alternatives of above discharge plan were discussed. Informed consent was given to proceed with above discharge plan by this competent patient. VANGIE
== END 2017-09-30 14:18 | disposition home or self-care (01) | DRG 885 ==
LOC: BHS 12:38
PROVIDERS: ADMIT Psychiatry & Neurology Psychiatry; ATTEND Psychiatry & Neurology Psychiatry
DX: F31.81 Bipolar II disorder (principal); R45.851 Suicidal ideations; N40.0 Benign prostatic hyperplasia without lower urinary tract symptoms; F10.20 Alcohol dependence, uncomplicated; F12.90 Cannabis use, unspecified, uncomplicated; E78.5 Hyperlipidemia, unspecified; E03.9 Hypothyroidism, unspecified; Y90.0 Blood alcohol level of less than 20 mg/100 ml; Z96.641 Presence of right artificial hip joint; Z91.5 Personal history of self-harm; Z87.828 Personal history of other (healed) physical injury and trauma; Z81.1 Family history of alcohol abuse and dependence; Z81.8 Family history of other mental and behavioral disorders; Z86.711 Personal history of pulmonary embolism; Z73.3 Stress, not elsewhere classified
CPT/HCPCS: 36415; 80164; 80178; 80305; 80320; 80329; 81001; 82040; 82247; 82310; 82374; 82435; 82565; 82947; 83735; 84075; 84132; 84155; 84295; 84443; 84450; 84460; 84520; 85025; 87088; 99285

== ENCOUNTER → 2018-01-13 | Outpatient (CLI) | payer MEDICARE, OTHER, MEDICAID ==
[2016-08-25 08:50] VITALS: BMI 23.5
[~2018-01-13] MED LIST changes: +LAMO25TA64 PO; +LIT300CAP PO; +MIRT-18 PO; +TAMS0.4C25 PO
--- NOTE | 2018-01-13 09:42 | RADIOLOGY IMAGING REPORT ---
FACILITY: [facility] PATIENT NAME: Farooq Tai : 1960 MR: [id number] V: [id number] EXAM DATE: ORDERING PHYSICIAN: DEEPIKA MOTA TECHNOLOGIST: [facility] Patient: Farooq Tai : 1960 Visit/Account:[id number] Date of Sevice: 01/13/2018 EXAMINATION: Right knee radiographs 3 views HISTORY: Right knee pain COMPARISON: 06/28/2012 FINDINGS: Frontal, oblique and lateral views obtained. Bones: Unchanged chronic osseous protuberance emanates off the distal medial femur measuring 1.7 cm. Joint spaces: Normal. Alignment: Normal. Soft tissues: Prepatellar soft tissue thickening has increased. IMPRESSION: No fracture or malalignment. Prepatellar soft tissue thickening has increased which may represent baseline prominence of the soft tissues or soft tissue edema. Unchanged chronic 1.7 cm osseous protuberance emanates off the medial distal femur which may represen t residua of prior trauma/inflammation to the medial collateral ligament versus a benign osteochondro ma.. Report Dictated By: Victor Hugo Claudio MD at 01/13/2018 9:31 AM Report E-Signed By: Victor Hugo Claudio MD at 01/13/2018 9:35 AM WSN:[email or web address]
--- NOTE | 2018-01-13 11:12 | RADIOLOGY IMAGING REPORT ---
[place] [facility] [place]IENT NAME: Farooq Tai : 1960 MR: [id number] V: [id number] EXAM DATE: ORDERING PHYSICIAN: DEEPIKA MOTA TECHNOLOGIST: [place] [facility] [place] Patient: Farooq Tai : 1960 Visit/Account:[id number] Date of Sevice: 01/13/2018 EXAMINATION: Pelvis and right hip radiographs HISTORY: Pain COMPARISON: September 21, 2017 FINDINGS: Frontal pelvis, frontal right hip and frog-leg lateral right hip radiographs obtained. Right total h ip arthroplasty is present in near-anatomic alignment. No evidence of hardware loosening. Normal le ft hip. No acute fracture. Unchanged chronic hypertrophy of the bilateral superior pubic rami and p ubic bodies with unchanged fusion of the pubic symphysis. Normal sacroiliac joints. Heterotopic oss ification adjacent to the right hip is unchanged. Unchanged curvilinear sclerosis within the left il iac bone. IMPRESSION: 1. Unchanged intact right hip arthroplasty in near-anatomic alignment without evidence of loosening. 2. No acute finding. 3. Unchanged chronic findings as described above. Report Dictated By: Victor Hugo Claudio MD at 01/13/2018 11:05 AM Report E-Signed By: Victor Hugo Claudio MD at 01/13/2018 11:08 AM WSN:[email or web address]
== END ==
LOC: LAB 08:22
PROVIDERS: ATTEND Nurse Practitioner Family
DX: Z51.81 Encounter for therapeutic drug level monitoring (principal); M25.551 Pain in right hip; M62.838 Other muscle spasm; M25.561 Pain in right knee; Z96.641 Presence of right artificial hip joint; Z79.899 Other long term (current) drug therapy; E03.9 Hypothyroidism, unspecified
CPT/HCPCS: 36415; 80178; 82040; 82247; 82310; 82374; 82435; 82465; 82565; 82947; 83036; 83718; 84075; 84132; 84155; 84295; 84439; 84443; 84450; 84460; 84478; 84481; 84520; 85025

== ENCOUNTER → 2018-01-13 | Outpatient (CLI) | payer MEDICARE, OTHER, MEDICAID ==
[2016-08-25 08:50] VITALS: BMI 23.5
[2018-01-13 08:52] LABS: PLATELET COUNT, AUTOMATED 319 K/uL (150-450)
[2018-01-13 10:49] LABS: LDL CHOLESTEROL 148 mg/dl
== END ==
LOC: LAB 08:27
PROVIDERS: ATTEND Psychiatry & Neurology Psychiatry
DX: Z51.81 Encounter for therapeutic drug level monitoring (principal); Z79.899 Other long term (current) drug therapy; E03.9 Hypothyroidism, unspecified
CPT/HCPCS: 36415; 80178; 82040; 82247; 82310; 82374; 82435; 82465; 82565; 82947; 83036; 83718; 84075; 84132; 84155; 84295; 84439; 84443; 84450; 84460; 84478; 84481; 84520; 85025

== ENCOUNTER → 2018-01-24 | Outpatient (CLI) | payer MEDICARE, MEDICAID ==
[2016-08-25 08:50] VITALS: BMI 23.5
--- NOTE | 2018-01-24 16:55 | RADIOLOGY IMAGING REPORT ---
FACILITY: [facility] PATIENT NAME: Farooq Tai : 1960 MR: [id number] V: [id number] EXAM DATE: ORDERING PHYSICIAN: DEEPIKA MOTA TECHNOLOGIST: Location: [facility] Patient: Farooq Tai : 1960 Visit/Account:[id number] Date of Sevice: 01/24/2018 KNEE RIGHT W/O CONTRAST COMPARISON: None. HISTORY: Right knee pain for 4 months with a bump above the patella. Bony prominence visible on x-ra y.. TECHNIQUE: Noncontrast multiplanar MRI of the right knee utilizing T1 weighted and fluid sensitive s equences. CONTRAST: None. FINDINGS: FLUID: There is no effusion or Bolivar's cyst. Mild anterior soft tissue edema. MENISCI: Horizontal tear in the posterior horn of the medial meniscus without flipped fragment or ex trusion. Lateral meniscus is intact. TENDONS/LIGAMENTS: The cruciate and medial collateral ligaments, lateral collateral ligamentous comp olga lidia and extensor mechanism are intact. The biceps and popliteus tendons are intact. MUSCLES: There is no muscle atrophy or edema. CARTILAGE: Mild partial-thickness cartilage loss lining the medial patellar facet near its junction with the median ridge, with minimal subjacent subchondral edema. Mild heterogeneity of the central, w eightbearing aspect of the medial femoral condyle with without well-defined defect. No significant la teral compartment cartilage loss. BONES: Chronic broad-based osseous protuberance arising from the superomedial margin of the medial c ondyle. This lies deep to the MCL origin and it probably represents cortical thickening/sequela of re mote MCL injury rather than an osteochondroma. Either way this has a benign appearance. Otherwise nor mal marrow signal and alignment. OTHER: Negative. IMPRESSION: 1. Horizontal tear, posterior horn of the medial meniscus in the right knee. 2. Mild patellar chondromalacia. 3. Medial femoral condyle osseous protuberance is probably related to remote trauma. Report Dictated By: Paul Sierra at 01/24/2018 4:27 PM Report E-Signed By: Paul Sierra at 01/24/2018 4:52 PM WSN:[id number]
== END ==
LOC: MRI 00:13
PROVIDERS: ATTEND Nurse Practitioner Family
DX: S83.241A Other tear of medial meniscus, current injury, right knee, initial encounter (principal); M22.41 Chondromalacia patellae, right knee

== ENCOUNTER → 2018-04-18 | Outpatient (CLI) | payer MEDICARE, MEDICAID ==
[2016-08-25 08:50] VITALS: BMI 23.5
== END ==
LOC: LAB 08:38
PROVIDERS: ATTEND Nurse Practitioner Family
DX: E03.9 Hypothyroidism, unspecified (principal)
CPT/HCPCS: 36415; 84443